=== PATIENT | female | born 1985 | race Caucasian/White ===

== ENCOUNTER 2016-11-14 14:21 | Emergency (ER) | payer OTHER ==
[~2016-11-14] VITALS: Ht 162.6 cm; Wt 143.2 kg
[2016-11-14 14:36] VITALS: BP 170/110; PULSE 72; RESP 20; O2SAT 97
[2016-11-14] MEDS ORDERED: Labetalol 5 mg/mL 4 mL Inj IVPUSH ONE (15:00)
--- NOTE | 2016-11-14 15:11 | ED.REPORT ---
HPI-Headache Date of Service Nov 14, 2016 ED Provider: Drake Burt DO Head started this morning. Throbbing "heart beat" "goes from both sides to the middle." No changes in vision. Some lightheadedness. Nausea. No vomiting. No CP. No SOB. No incontinence. Last headache like this was "months" Ibuprofen, tylenol. No migraines before her last . . Pre-eclampsia with 2nd , full term, still born. After words developed hypertension and was given the Dx of pre-eclampsia. Under of care of Dr. Boo COSMETOLOGIST. Treated with Labetalol q8hrs, now two times a day since two weeks ago. NO previous h.o htn. Had to return to have an ER visit 2wks after discharge from her post stay where she was found to have "fluid on the lungs." Took a "marijuana oil pill" last night to help sleep due to anxiety attack. Nursing Notes Stated Complaint: MIGRAINE & NAUSIA Chief Complaint: Headache Allergies: Coded Allergies: No Known Allergies (Unverified , 11/14/16) Scheduled Labetalol (Labetalol) 300 Mg Tablet 300 MG PO TID General Time Seen by MD: 14:25 Chief Complaint Headache Sudden in Onset?: Yes Onset Occurred: 5 - 8 hours ago Past Medical History Past Medical History HTN after . Obesity Anxiety Depression Past Surgical History Episiotomy for shoulder dystocia of full-term still-born. Smoking History Former Smoker (Quit 2014, 3-4 cig per day, started at 16yo. ) Social History , lives with . Alcohol Use: "Social" (Very rare) Drug Use: THC (Occasionally. ) Review of Systems Basic Review of Systems Respiratory: No shortness of breath Cardiovascular: No chest pain : No dysuria Hematologic: No bleeding Endocrine: No cold intolerance Allergy / Immune: No allergy Complete sys rev & neg: except as marked. Physical Exam General: Sitting up in bed, appropriate affect, no apparent distress HEENT: Normocephalic, atraumatic, EOMI grossly, mucous membranes moist, conjunctiva pink, funduscopic exam unremarkable, cup-to-disc ratio 0.3-0.4 equal bilaterally Cardiovascular: Regular rate and rhythm, no clicks murmurs rubs, peripheral pulses 2/4 equal bilaterally Pulmonary: Clear to auscultation bilaterally, no W/R/R. Abdominal: Soft to palpation, bowel sounds present 4, no hepatosplenomegaly. Negative rebound. Extremities: No edema appreciated. No tenderness, asymmetry. Neuro: Neurologically grossly intact, strength is equal bilaterally upper and lower extremities. Cerebellar exam unremarkable, no pronator drift, Romberg test unremarkable. 1/4 patellar reflexes BL. MSK: Gait is normal, able to move extremities on their own volition, strength 5 out of 5 equal bilaterally to upper and lower extremities. Initial Vital Signs Vital Signs (First) Date Time Temp Pulse Resp B/P Pulse Ox O2 Delivery O2 Flow Rate FiO2 11/14/16 14:36 36.6 72 20 170/110 97 Room Air Initial VS: Reviewed Interpretation & Diagnostics Lab Results Interpretation Result Diagram: 11/14/16 1515 11/14/16 1515 Test 11/14/16 15:15 11/14/16 15:59 White Blood Count 9.5th/mm3 (3.8-10.1) Red Blood Count 4.38mil/mm3 (3.90-5.20) Hemoglobin 12.3g/dL (12.0-15.6) Hematocrit 38.6% (35.0-46.0) Mean Corpuscular Volume 88.1fL (81-100) Mean Corpuscular Hemoglobin 28.1pg (27.0-35.0) Mean Corpuscular Hemoglobin Concent 31.9% (32.0-37.0) Red Cell Distribution Width 14.3% (12.3-15.4) Platelet Count 331bil/L (150-400) Neutrophils (%) (Auto) 74.2% (40-74) Lymphocytes (%) (Auto) 17.8% (14-46) Monocytes (%) (Auto) 5.5% (4-12) Eosinophils (%) (Auto) 2.0% (0-5) Basophils (%) (Auto) 0.3% (0-3) Sodium Level 138mEq/L (134-144) Potassium Level 3.8mEq/L (3.5-5.2) Chloride Level 98mEq/L (97-108) Carbon Dioxide Level 23mmol/L (18-29) Blood Urea Nitrogen 11mg/dL (6-20) Creatinine 0.65mg/dL (0.57-1.00) Estimat Glomerular Filtration Rate 152mL/min (>59) Glucose Level 111mg/dL (60-99) Uric Acid 7.8mg/dL (2.6-7.2) Calcium Level 10.3mg/dL (8.5-10.1) Magnesium Level 2.0mg/dL (1.6-2.6) Total Bilirubin 0.3mg/dL (0.0-1.2) Aspartate Amino Transf (AST/SGOT) 22U/L (0-50) Alanine Aminotransferase (ALT/SGPT) 30U/L (0-32) Alkaline Phosphatase 133U/L (25-150) Lactate Dehydrogenase 137U/L (100-190) Total Protein 7.7g/dL (6.4-8.4) Albumin 4.6g/dL (3.4-5.0) Hold Ott Top Tube Received (Received) Urine Color Yellow (YELLOW) Urine Appearance Hazy (CLEAR,HAZY) Urine pH 7.5 (5.0-8.0) Urine Specific [place] 1.010 (1.003-1.035) Urine Protein Negativemg/dL (NEG,TRACE) Urine Glucose (UA) Negativemg/dL (NEGATIVE) Urine Ketones Negativemg/dL (NEGATIVE) Urine Occult Blood Negative (NEGATIVE) Urine Nitrite Negative (NEGATIVE) Urine Bilirubin Negative (NEGATIVE) Urine Urobilinogen Normalmg/dL (NORMAL) Urine Leukocyte Esterase Moderate (NEGATIVE) Urine RBC 0-2/hpf (0-2) Urine WBC 11-50/hpf (0-5) Urine Epithelial Cells Moderate/hpf (NONE-MOD) Urine Crystals None seen (NONE SEEN) Urine Bacteria Few/hpf (NONE-FEW) Urine Hyaline Casts None/lpf (NONE) Urine Granular Casts None seen (NONE SEEN) Urine Waxy Casts None seen (NONE SEEN) Urine Red Blood Cell Casts None seen (NONE SEEN) Urine White Blood Cell Casts None seen (NONE SEEN) Urine Mucus None seen (None Seen) Urine Trichomonas None seen (NONE SEEN) Urine Yeast None (NONE SEEN) Urine Culture Reflexed Indicated Lab Results Interpretation: Mild hyperuricemia Mildly elevated blood glucose LDH not elevated Re-Eval/Medical Decision Med Decision/Clinical Course Patient was evaluated and found to not have any neurologic deficits or findings. She was given 10 mg of labetalol IV which decreased her systolic blood pressure 40 points, also decreased her headache from 6 out of 10 to a 2-3 out of 10. She declined all other headache medications. She declined magnesium IV. Discussing the plan with the patient to increase her outpatient labetalol from 100 mg twice a day to 300 mg 3 times a day agreed upon. Consultation : Referral / Consult Name: EDITH CARDENAS Requested Call at: 16:00 Call Returned at: 16:00 Naturalization Examiner: Will see in office, Agrees with plan Note: Dr. Boo COSMETOLOGIST of [facility] who has been working with the patient was consulted regarding the patient's visit and treatment. She stated patient should be placed on 300 mg of labetalol 3 times a day and follow-up with her group tomorrow morning. Discharge & Departure Impression: Primary Impression: Pre-eclampsia Trimester: unspecified trimester Qualified Code: O14.90 - Unspecified pre- eclampsia, unspecified trimester Discharge Condition All VS Reviewed: Yes Condition: Improved Patient Instructions: Pre-eclampsia and Eclampsia (ED) Additional Instructions: Please hot die picker and begin taking 300 mg of labetalol 3 times a day. Please follow-up with [facility] tomorrow as you previously had scheduled. If you have any lightheadedness dizziness, feeling faint, chest pain, shortness of breath, or dizziness upon standing please consider returning to the emergency department or call 911 if necessary. If the heart rate drops below 60 beats per minute, please skip a dose of labetalol and contact [facility]. Attending Statement The patient was seen and examined together with Dr. Cueva on 11/14/2016 and I have added additional information to the note above. Олег Cueva DO Nov 14, 2016 15:10 Drake Burt DO Nov 14, 2016 18:35
[2016-11-14 15:29] VITALS: BP 181/100; PULSE 72; RESP 14
[2016-11-14] MEDS ORDERED: Magnesium Sulf 4 Gm/100 mL H2O 4 GM in IV Premix 1 EACH IV ONE (15:35)
[2016-11-14] MEDS ORDERED: ProchlorPERazine 5 mg/mL 2 mL Inj IVPUSH ONE (15:35)
[2016-11-14 15:36] LABS: BASOPHILS % (AUTO) 0.3 % (0-3); MONOCYTES % (AUTO) 5.5 % (4-12); Mean Corpuscular Hemoglobin 28.1 pg (27.0-35.0); Mean Corpuscular Volume 88.1 fL (81-100); NEUTROPHILS % (AUTO) 74.2 % (40-74); Platelet Count 331 bil/L (150-400)
[2016-11-14 15:55] VITALS: BP 143/91; PULSE 71; RESP 16; O2SAT 97
[2016-11-14 16:23] LABS: APPEARANCE,URINE HAZY (CLEAR,HAZY); COLOR,URINE YELLOW (YELLOW); OCCULT BLOOD,URINE NEGATIVE (NEGATIVE); PH,URINE 7.5 (5.0-8.0); UROBILINOGEN,URINE NORMAL (NORMAL)
[2016-11-14] MEDS ORDERED: LABE300T PO (16:43)
[2016-11-14 16:56] VITALS: BP 148/82; PULSE 68; RESP 16; O2SAT 96
[2016-11-14 17:03] VITALS: BP 148/82; PULSE 68; RESP 16; O2SAT 96
== END 2016-11-14 17:05 ==
LOC: SED 14:21 → MERGE 14:21 → SED 17:05
DX: O14.90 Unspecified pre-eclampsia, unspecified trimester (principal); I10 Essential (primary) hypertension; Z3A.00 Weeks of gestation of pregnancy not specified; Z87.891 Personal history of nicotine dependence